=== PATIENT | female | born 1970 | race Caucasian/White ===

== ENCOUNTER 2024-10-11 01:49 | Emergency (ER) | payer OTHER ==
[~2024-10-11] VITALS: Ht 165.1 cm; Wt 94.0 kg
[2024-10-11 02:09] VITALS: TEMP 36.6; O2SAT 100; O2SAT 99
[2024-10-11 03:24] LABS: BASOPHILS % 0.9 % (0.0-2.0); EOSINOPHILS % 3.6 % (0.0-5.0); HEMATOCRIT. 39.5 % (36.0-48.0); HEMOGLOBIN. 13.4 g/dL (12.0-16.0); LYMPHOCYTES % 29.0 % (20.0-50.0); MEAN PLATELET VOLUME 7.7 fl (7.4-10.4); MONOCYTES % 7.7 % (2.0-8.0); NEUTROPHILS % 58.8 % (40.0-76.0); PLATELET 239 x1000/uL (130-400); RED BLOOD CELL COUNT 4.49 mill/uL (4.2-5.4); RED CELL DISTRIBUTION WIDTH 13.1 % (11.6-14.6)
[2024-10-11 03:41] LABS: CREATININE 1.1 mg/dL (0.6-1.0); UREA NITROGEN BLOOD 14 mg/dL (9-23)
[2024-10-11 03:42] LABS: ASPARTATE AMINOTRANSFERASE 23 IU/L (<34)
[2024-10-11 03:43] LABS: BILIRUBIN TOTAL 0.6 mg/dL (0.1-1.0); PROTEIN TOTAL 6.7 g/dL (6.0-8.3)
[2024-10-11 06:17] VITALS: BP 105/83; PULSE 66; RESP 18
[2024-10-11] MEDS: IBUPROFEN 600MG TABLET PO ONE (06:17)
[2024-10-11] MEDS ORDERED: OMEP20TA23 MT (07:11)
[2024-10-11] MEDS ORDERED: IBUP-2029 MT (07:11)
[2024-10-11] MEDS ORDERED: SULF1TAB48 MT (07:11)
== END 2024-10-11 07:55 | disposition home or self-care (01) ==
LOC: ER 01:49
DX: M79.604 Pain in right leg (principal); I87.1 Compression of vein; Z79.899 Other long term (current) drug therapy; Z86.718 Personal history of other venous thrombosis and embolism; Z88.0 Allergy status to penicillin; Z88.5 Allergy status to narcotic agent
CPT/HCPCS: 99284; 93971; 80053; 85025; 85379; 85730; 36415; A6449